=== PATIENT | female | born 1995 | race Caucasian/White ===

== ENCOUNTER 2025-03-28 12:54 | Outpatient (REF) | payer OTHER, SELFPAY ==
[2025-03-28 18:27] LABS: MANUAL DIFF FLAG NO
[2025-03-28 18:41] LABS: Hematocrit 43.6 % (37.0-47.0); Hemoglobin 15.1 g/dl (12.0-16.0); Imm Gran Abs Auto 0.01 X10*3/uL (0.00-0.03); Imm Gran Pct Auto 0.1 % (0.0-0.4); Lymphocytes Absolute Auto 2.3 X10*3/uL (1.2-4.9); Mean Corpuscular HGB Conc 34.6 g/dl (31.0-35.0); Mean Corpuscular Hemoglobin 31.3 pg (27.0-33.0); Mean Corpuscular Volume 90.5 fL (80.0-98.0); NRBC Abs Auto 0.000 X10*3/uL (0.0-0.012); NRBC Pct Auto 0.0 /100WBC (0.0-0.2); Platelet Count 275 X10*3/uL (160-400); Red Blood Count 4.82 X10*6/uL (4.20-5.50); White Blood Count 7.2 X10*3/uL (4.8-10.8)
[2025-03-28 18:51] LABS: Alanine Aminotransferase 19 U/L (0-31); Albumin Level 4.9 g/dL (3.5-5.0); Alkaline Phosphatase 51 U/L (39-117); Anion Gap 11 (12-20); Aspartate Amino Transferase 27 U/L (5-31); Blood Urea Nitrogen 10 mg/dL (9-16); Calcium 10.0 mg/dL (8.4-10.2); Carbon Dioxide 25 mmol/L (22-29); Chloride 106 mmol/L (96-108); Cholesterol 181 mg/dL (<200); Estimated Glomerular Filt Rate > 60; HDL Cholesterol 50 mg/dL (>40); Magnesium 2.2 mg/dL (1.6-2.6); Potassium 4.4 mmol/L (3.3-5.1); Sodium 138 mmol/L (135-145); Total Protein 7.5 g/dL (6.5-8.0); Triglycerides 63 mg/dL (<150)
[2025-03-28 19:04] LABS: Appearance Urine Clear; Glucose Urine UA Negative (Negative); PH 6.0 (5.0-9.0); Specific Gravity - Urine 1.025 (1.005-1.025); UMIC TRIGGER UACC YES
[2025-03-28 19:17] LABS: Folate 10.9 ng/mL (> or = 4.0); Vitamin B12 260 pg/mL (200-900)
[2025-03-29 04:00] LABS: Syphilis Screen Nonreactive (Nonreactive)
[2025-03-29 04:08] LABS: HBS Num1 1.53 mIU/mL (0-7.99); HBsAGNum1 0.52 S/CO (0.00-0.99); HIV Num 1 0.05 S/CO (0.00-0.99); Hepatitis B Surface Antigen Negative (Negative); ~HepC Num1 0.07 S/CO (0.00-0.79); ~Hepatitis B Surface Antibody NONREACTIVE (Nonreactive); ~Hepatitis C Antibody Nonreactive (Nonreactive)
[2025-03-29 13:28] LABS: CT PCR Urine Error (Not Detect.); NG PCR Urine Error (Not Detect.)
[2025-04-02 11:19] LABS: Chlamydia Trachomatis IgA <1:16 titer (<1:16)
[2025-04-03 15:33] LABS: VITAMIN D (1,25 OH) D3 45 pg/mL; Vit D (1,25-Dihydroxy) Total 45 pg/mL (18-72); Vitamin D (1,25 OH) D2 <8 pg/mL
== END 2025-03-28 12:55 | disposition home or self-care (01) ==
LOC: HO.HKASLDS 12:54
PROVIDERS: PCP Student in an Organized Health Care Education/Training Program; Visit Provider Student in an Organized Health Care Education/Training Program
DX: M51.369 Other intervertebral disc degeneration, lumbar region without mention of lumbar back pain or lower extremity pain (principal); M54.50 Low back pain, unspecified; M54.32 Sciatica, left side; M25.552 Pain in left hip; G89.29 Other chronic pain; J45.909 Unspecified asthma, uncomplicated; Z20.2 Contact with and (suspected) exposure to infections with a predominantly sexual mode of transmission; Z11.4 Encounter for screening for human immunodeficiency virus [HIV]
CPT/HCPCS: 80053; 80061; 81001; 81003; 82607; 82652; 82746; 83036; 83735; 84443; 85025; 86631; 86632; 86706; 86780; 86803; 87340; 87389; 87491; 87591; 99202

== ENCOUNTER 2025-03-28 12:54 | Outpatient (AMB) | payer OTHER, SELFPAY ==
--- OUTSIDE RECORDS SUMMARY | 2022-08-02 12:32 | XMS_ITS | Encounter Summary ---
Author Organization [facility] Address [address] [place] [address] Phone Care Team Providers Care Customs Collector Name Role Phone Herminia Gallego NP Primary Care Provider [phone] Encounter Details Date Type Department Care Team (Late st Contact Info) Description 08/02/2022 11:32 AM EST Hospital Encounter [facility] [address] [place] [address] Jonna Epstein FNP 12 [place] [address] [email or web address] Social History Tobacco Use Types Packs/Day [...] 12:23 PM EDT Catherine Keith RN * [place] Suicide Severity Rating Scale (Screener/Recent Self-Report) Question [...] No displaced fracture or dislocation. Jonna Epstein WOOD FENCE ERECTOR IMG XR LOWER EXTREMITY Joan l Result documented in this encounter Visit Diagnoses Not on filedocumented in this encounter Additional Health Concerns Infection Onset Date Last Indicated Resolved Time CoV-Risk 07/01/2024 07/01/2024 07/12/2024 1:23 AM EST documented as of this encounter Care Teams Customs Collector Relationship Specialty Start Date End Date Herminia Gallego NP [address] [place] [address] PCP - General Family Medicine 01/17/21 documented as of this encounter Additional Source Comments The information contained in this document represents components of the legal health record. It is not the complete legal health record.[facility]
--- OUTSIDE RECORDS SUMMARY | 2022-08-02 12:40 | XMS_ITS | Encounter Summary ---
Author Organization [facility] Address [address] [place] [address] Phone Care Team Providers Care Business Risk Consultant Name Role Phone Herminia Gallego NP Primary Care Provider [phone] Encounter Details Date Type Department Care Team (Late st Contact Info) Description 08/02/2022 11:40 AM EST Hospital Encounter [facility] [address] [place] [address] Jonna Epstein FNP [address] [place] [address] [email or web address] Social History Tobacco Use Types Packs/Day [...] 12:23 PM EDT Catherine Keith RN * [place] Suicide Severity Rating Scale (Screener/Recent Self-Report) Question [...] No displaced fracture or dislocation. Jonna Epstein PUBLICITY AGENT IMG XR LOWER EXTREMITY Joan l Result documented in this encounter Visit Diagnoses Not on filedocumented in this encounter Additional Health Concerns Infection Onset Date Last Indicated Resolved Time CoV-Risk 07/01/2024 07/01/2024 07/12/2024 1:23 AM EST documented as of this encounter Care Teams Business Risk Consultant Relationship Specialty Start Date End Date Herminia Gallego NP [address] [place] [address] PCP - General Family Medicine 01/17/21 documented as of this encounter Additional Source Comments The information contained in this document represents components of the legal health record. It is not the complete legal health record.[facility]
--- OUTSIDE RECORDS SUMMARY | 2024-07-01 18:05 | XMS_ITS | Encounter Summary ---
Author Organization [facility] Address [address] [place] [address] Phone Care Team Providers Care Fire Alarm Inspector Name Role Phone Herminia Gallego NP Primary Care Provider [phone] Encounter Details Date Type Department Care Team (Late st Contact Info) Description 07/01/2024 5:05 PM EST Hospital Encounter [facility] [address] [place] [address] Jonna Epstein FNP [address] [place] [address] [email or web address] Social History Tobacco Use Types Packs/Day [...] 12:23 PM EDT Catherine Keith RN * [place] Suicide Severity Rating Scale (Screener/Recent Self-Report) Question [...] clinician's provided indication for this examination in [facility]:Cough; chest heaviness sob COMPARISON: XR CHEST PA AND LATERAL 2 VIEWS FINDINGS: Devices/Tubes/Lines: None. Lungs: Normal. The lungs are clear. No focal consolidation or pulmonaryedema. Pleura: Normal. No pleural effusion or pneumothorax. Heart/Mediastinum: Normal heart and mediastinum. Bones/Soft Tissues: Normal. No significant skeletal abnormality. IMPRESSION: Normal chest. Jonna Epstein HISTORICAL RECORDS ADMINISTRATOR IMG XR CHEST Final Resul t documented in this encounter Visit Diagnoses Not on filedocumented in this encounter Additional Health Concerns Infection Onset Date Last Indicated Resolved Time CoV-Risk 07/01/2024 07/01/2024 07/12/2024 1:23 AM EST documented as of this encounter Care Teams Fire Alarm Inspector Relationship Specialty Start Date End Date Herminia Gallego NP [address] [place] [address] PCP - General Family Medicine 01/17/21 documented as of this encounter Additional Source Comments The information contained in this document represents components of the legal health record. It is not the complete legal health record.[facility]
--- NOTE | 2025-03-28 13:00 | A.OFFPC_ITS ---
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 Asthma, mild intermittent: - The patient has a history of mild inte rmittent asthma managed with albuterol and budesonide, with no exacerbations in the past year and rare inhaler use. L4-L5 disc bulge: - The patient has an L4-L5 disc bulge id entified via CT scan during an ED visit for lower back pain. 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 Left hip pain: - The patient reports chronic left hip p ain, which is part of her ongoing musculoskeletal issues. 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 Review of Systems - Respiratory: Denies recent asthma exac erbations, reports rare inhaler use. - Musculoskeletal: Reports chronic lower back pain, left hip pain, and sciatica. 10-point ROS reviewed and negative excep t as noted in HPI Past Medical History - Asthma, mild intermittent - L4-L5 disc bulge - Chronic sciatica - Left hip pain - Chronic lower back pain Health Maintenance Physical Exam General: Well-appearing, in no acute distress. Vital signs: Within normal limits. HEENT: Normocephalic, atraumatic. PERRLA, EOMI. Conjunctiva clear, sclera anicteric. Oropharynx clear, mucous membranes moist. TMs intact bilaterally. Neck: Supple, no lymphadenopathy, no thyromegaly, no JVD or carotid bruits. Cardiovascular: RRR, normal S1/S2, no murmurs, rubs, or gallops. Peripheral pulses 2+ and symmetric. No edema. Respiratory: Lungs clear to auscultation bilaterally, no wheezes, rales, or rhonchi. Normal effort. Abdomen: Soft, non-tender, non-distended. Normoactive bowel sounds. No hepatosplenomegaly, no masses. MSK: Full range of motion, no joint swelling or deformity. Normal gait. Reports chronic lower back pain, left hip pain, and chronic sciatica down the left side. L4-L5 disc bulge noted on previous CT scan. Positive straight leg test Skin: Warm, dry, intact. No rashes, lesions, or pallor. Neuro: Alert and oriented x3. Cranial nerves II-XII intact. Strength 5/5 throughout. Sensation intact. Reflexes 2+ symmetric. Normal coordination and gait. Psych: Appropriate mood and affect. Normal judgment and insight. Plan 1. Asthma, Mild Intermittent - Continue current asthma management wit h albuterol and butanoside as needed. 2. L4-L5 Disc Bulge - Order MRI of the lumbar spine to asses s the extent of the disc bulge. - Consider referral to orthopedic or haydee rosurgery based on MRI results. 3. Chronic Sciatica - Recommend continuation of stretching e xercises and use of heating pads. - Prescribe ibuprofen 800 mg for pain ma nagement. 4. Left Hip Pain - Manage with stretching exercises and i buprofen as needed. 5. Chronic Lower Back Pain - Continue with current home exercise re gimen and use of heating pads. - Prescribe ibuprofen 800 mg for pain re lief. - MRI of the lumbar spine to further cecile luate the condition. Discussion Notes I discussed with the patient the management of her asthma, emphasizing the importance of using her inhaler as needed. We reviewed her chronic lower back pain and associated symptoms, and I recommended an MRI to further evaluate her lumbar spine condition. We also discussed the potential need for referral to orthopedic or neurosurgery based on the MRI results. The patient declined physical therapy, stating she is familiar with the necessary exercises. I prescribed ibuprofen 800 mg for pain management and advised her to continue with her stretching exercises and use of heating pads. Patient was informed and verbally consented to the use of an ambient scribe for clinic note documentation during this visit. Patient Instructions - Use albuterol inhaler as needed for as thma symptoms. - Continue stretching exercises and use heating pads for back and hip pain. - Take ibuprofen 800 mg as prescribed fo r pain relief. - Schedule an MRI of the lumbar spine. - Follow up with results for potential r eferral to orthopedic or neurosurgery. Total time spent caring for the patient today was 30 minutes. This includes time spent before the visit reviewing the chart, time spent documenting, and time spent reviewing medication performing a medically necessary evaluation, counseling on diagnoses, care coordination, ordering appropriate tests, ordering appropriate medications, [facility] Medical History (Updated 03/28/25 @ 14:03 by Joan Mathews) L4-L5 disc bulge Left hip pain Sciatica, left side Lumbar pain Chronic lower back pain Family History (System 03/28/25 @ 14:03 by Joan Mathews) Father No problems noted. Mother No problems noted. Social History (System 03/28/25 @ 14:03 by Joan Mathews) Housing: House Alcohol intake: current Alcohol intake frequency: holidays/special occasions only Patient Tobacco Use Status: Never used Tobacco service: No Current occupational status: unemployed Cognitive needs: No Hearing needs: No Vision needs: Yes (rx glasses) Questionnaire PHQ-9 Over the last 2 weeks, how often have you been bothered by any of the following problems? 1. Little interest or pleasure in doing things: several days 2. Feeling down, depressed, or hopeless: several days 3. Trouble falling or staying asleep, or sleeping too much: several days 4. Feeling tired or having little energy: not at all 5. Poor appetite or overeating: not at all 6. Feeling bad about yourself - or that you are a failure or have let yourself or your family down: not at all 7. Trouble concentrating on things, such as reading the newspaper or watching television: not at all 8. Moving or speaking so slowly that other people could have noticed. Or the opposite - being so fidgety or restless that you have been moving around a lot more than usual: not at all 9. Thoughts that you would be better off or of hurting yourself in some way: not at all Total score: 3 Source: Developed by Drs. Ar Bhardwaj, Yamilet Sewell, Georgi Hernández and colleagues, with an educational james from [employer]. Thrive Questionnaire Date Thrive assessed: 03/21/25 I am a: Patient What is your living situation today?: I have a steady place to live Within the past 12 months, did the food you bought not last and you didn't have the money to get more?: Never true Within the past 12 months, did you worry whether your food would run out before you got money to buy more?: Never true Do you have trouble paying for medicines?: No Do you have trouble getting transportation to medical appointments?: No Do you have trouble paying your heating and electricity bill?: No Do you have trouble taking care of your child, family member or friend?: No Do you have trouble with day-to-day activities such as bathing, preparing meals, shopping, managing finances, etc.?: No Are you currently unemployed and looking for a job?: No Are you interested in more education?: No Please select the resources that you would like help with: None Currently or been in a relationship where the following occur: No concerns reported THRIVE Score: 0 AUDIT C Alcohol Use Questionnaire (AUDIT-C) 1. How often do you have a drink containing alcohol?: Monthly or less 2. How many drinks containing alcohol do you have on a typical day when you are drinking?: 1 or 2 3. How often do you have six or more drinks on one occasion?: Never Total Score: 1 SOL-7 AMB Questionnaire SOL-7 Date SOL - 7 assessed: 03/28/25 Feeling nervous, anxious, or on edge: 1 = Several days Not being able to stop or control worryin = Several days Worrying too much about different things: 1 = Several days Trouble relaxin = Nearly every day Being so restless that it is hard to sit still: 1 = Several days Becoming easily annoyed or irritable: 0 = Not at all Feeling afraid as if something awful might happen: 1 = Several days Total SOL-7 score (0-4 normal; 5-9 mild; 10-14 moderate; 15-21 severe): 8 Source: Developed by Yamilet HillW. Donato, Georgi Hernández and colleagues, with an educational james from [employer]. Physical exam (Primary Care) Vital Signs: Last Vital Signs Temp 98.1 F 03/28/25 13:10 Pulse 73 03/28/25 13:10 Resp 16 03/28/25 13:10 BP 103/72 03/28/25 13:10 Pulse Ox 96 03/28/25 13:10 Oxygen Delivery Method Room Air 03/28/25 13:10 BMI result Body Mass Index 22.4 Tobacco/Smoking Status: Tobacco use Status Tobacco use date assessed 03/28/25 03/28/25 13:02 Patient Tobacco Use Status Never used Tobacco 03/28/25 13:10 PHQ-9: PHQ-9 Score PHQ-9: Total score 3 03/28/25 13:27 Thrive Assessment: Date of Thrive Assessment Date Thrive assessed 03/21/25 03/28/25 13:02 Currently or been in a relationship where the following occur: No concerns reported Coding Level of Care Code New Pt Level 4 (38946) Diagnoses Chronic lower back pain M54.50; G89.29 Sciatica, left side M54.32 Left hip pain M25.552 Lumbar pain M54.50 Asthma J45.909 Assessment & Plan Assessment & Plan (1) Chronic lower back pain: Code(s): M54.50 - Low back pain, unspecified; G89.29 - Other chronic pain Category: Medical (2) Sciatica, left side: Code(s): M54.32 - Sciatica, left side Category: Medical (3) Left hip pain: Code(s): M25.552 - Pain in left hip Category: Medical (4) Lumbar pain: Code(s): M54.50 - Low back pain, unspecified Category: Medical (5) Asthma: Code(s): J45.909 - Unspecified asthma, uncomplicated Plan Orders: Orders Hemoglobin A1c 03/28/25 Z13.9 - Encounter for screening, unspecified Hepatitis B Surface Antigen 03/28/25 Z13.9 - Encounter for screening, unspecified HIV Ab/Ag 03/28/25 Z13.9 - Encounter for screening, unspecified Lipid Panel 03/28/25 Z13.9 - Encounter for screening, unspecified Vitamin B12 and Folate 03/28/25 Z13.9 - Encounter for screening, unspecified Vitamin D 1,25 dihydroxy 03/28/25 Z13. - Encounter for screening, unspecified Syphilis Screen 03/28/25 Z13. - Encounter for screening, unspecified CT NG by PCR Urine 03/28/25 Z13. - Encounter for screening, unspecified MR lumbar spine wo/w con 03/28/25 G89.29 - Other chronic pain, M25.552 - Pain in left hip, M51.369 - Other intervertebral disc degeneration, lumbar region without mention of lumbar back pain or lower extremity pain, M54.32 - Sciatica, left side, M54.50 - Low back pain, unspecified Complete Blood Count Auto Diff 03/28/25 Z13. - Encounter for screening, unspecified Comprehensive Met. Panel 03/28/25 Z13. - Encounter for screening, unspecified Hepatitis B Surface Antibody 03/28/25 Z13. - Encounter for screening, unspecified Hepatitis C Antibody 03/28/25 Z13. - Encounter for screening, unspecified Magnesium 03/28/25 Z13. - Encounter for screening, unspecified UA CC w/rflx Micro + Cult 03/28/25 Z13. - Encounter for screening, unspecified Chlamydia Species Ab Panel 03/28/25 Z13. - Encounter for screening, unspecified TSH reflex Free T4 03/28/25 Z13. - Encounter for screening, unspecified Medications: New ibuprofen 800 mg PO Q8H 30 tabs 0RF M51.369 - Other intervertebral disc degeneration, lumbar region without mention of lumbar back pain or lower extremity pain
[2025-03-28 13:10] VITALS: BP 103/72; PULSE 73; RESP 16; TEMP 36.7; O2SAT 96; BMI 22.4
--- OUTSIDE RECORDS SUMMARY | 2025-03-28 13:20 | XMS_ITS | Encounter Summary ---
Author Organization [facility] Address [address] [place] [id number] Phone Care Team Providers Care Supervisor Component Assembler Name Role Phone Herminia Gallego NP Primary Care Provider [phone] Encounter Details Date Type Department Care Team (Late st Contact Info) Description 11/25/2022 Procedure Pass [place] Admitting Dept - Virtual Department [address] [place] [address] Social History Tobacco Use Types Packs/Day Years [...] with a working camera? Not on file Comments Unknown Sex and Gender Information Value Date Recorded Sex Assigned at Female 01/17/2021 5:54 PM EDT Legal Sex Female 7:31 PM EST Gender Identity Female 01/17/2021 5:54 PM EDT Sexual Orientation Not on file documented as of this encounter Plan of Treatment Not on file documented as of this encounter Visit Diagnoses Not on filedocumented in this encounter Additional Health Concerns Infection Onset Date Last Indicated Resolved Time CoV-Risk 07/01/2024 07/01/2024 07/12/2024 1:23 AM EST documented as of this encounter Care Teams Supervisor Component Assembler Relationship Specialty Start Date End Date Herminia Gallego NP [address] [place] [address] PCP - General Family Medicine 01/17/21 documented as of this encounter Additional Source Comments The information contained in this document represents components of the legal health record. It is not the complete legal health record.[facility]
--- OUTSIDE RECORDS SUMMARY | 2025-03-28 13:20 | XMS_ITS | Encounter Summary ---
Author Organization [facility] Address [address] [place] [address] Phone Care Team Providers Care Skidder Driver Name Role Phone JuliánHerminia NP Primary Care Provider [phone] Encounter Details Date Type Department Care Team (Late st Contact Info) Description 03/03/2021 Procedure Pass [facility], Ct Scan - [address] [address] Social History Tobacco Use Types Packs/Day Years Used Date Smoking Tobacco: Never Smokeless Tobacco: Never Alcohol Use Standard Drinks/Week Comments Never 0 (1 standard drink = 0.6 oz pur e alcohol) Comments Unknown Sex and Gender Information Value Date Recorded Sex Assigned at Female 01/17/2021 5:54 PM EDT Legal Sex Female 7:31 PM EST Gender Identity Female 01/17/2021 5:54 PM EDT Sexual Orientation Not on file documented as of this encounter Functional Status * Calculated C-SSRS Risk Score (Lifetime/Recent) Answer Date of Assessment Author No Risk Indicated 03/03/2021 5:08 PM EDT Gilda Ram RN * [place] Suicide Severity Rating Scale (Screener/Recent Self-Report) Question Answer Date of Assessment Author 1. Wish to be (Past 1 Month) No 03/03/2021 5:08 PM EDT Gilda Segovia RN 2. Non-Specific Active Suici enio Thoughts (Past 1 Month) No 03/03/2021 5:08 PM EDT Lester Segovia RN 6. Suicidal Behavior (Lifetime) No 09/08/202 1 5:08 PM EDT Gilda Segovia RN documented as of this encounter Plan of Treatment Not on file documented as of this encounter Visit Diagnoses Not on filedocumented in this encounter Additional Health Concerns Infection Onset Date Last Indicated Resolved Time CoV-Risk 07/01/2024 07/01/2024 07/12/2024 1:23 AM EST documented as of this encounter Care Teams Skidder Driver Relationship Specialty Start Date End Date Herminia Gallego NP [address] [place] [address] PCP - General Family Medicine 01/17/21 documented as of this encounter Additional Source Comments The information contained in this document represents components of the legal health record. It is not the complete legal health record.[facility]
--- OUTSIDE RECORDS SUMMARY | 2025-03-28 13:20 | XMS_ITS | Clinical Summary ---
Author Organization [facility] Address [address] [place] [id number] Phone Care Team Providers Care Case Assembler Name Role Phone Herminia Gallego NP Primary Care Provider [phone] Allergies Active Allergy Reactions Criticality Noted Date Comments Buspirone Rash Low 06/07/2024 Bupropion Hcl Rash Low 03/03/2021 Medications albuterol 90 mcg/actuation inhaler Inhale 2 puffs into the lungs every 6 (six) hours as needed for wheezing. Active cyclobenzaprine (FLEXERIL) 5 MG tablet Take 1 tablet (5 mg total) by mouth 3 (three) times a day as needed (muscle spasm). 15 tablet 3 Active Additional Information Patient not taking.Reported on 06/07/2024 naproxen (NAPROSYN) 500 MG tablet Take 1 tablet (500 mg total) by mouth 2 (two) times a day as needed (moderate pain). Take with food. 14 tablet 3 Active Active Problems No known active problems Immunizations Immunization Administration Dates Next Due DTP 09/02/1996, 6,1995,05/04 Dtap, 5 Pertussis Antigens 03/02/2000 [id number] FORMULATION 04/22/2009 HPV,quadrivalent 03/27/2008,11/20/2007, 8 Hepatitis A, Adult 11/05/2014 Hepatitis A, ped/adol, 2 dose 10/01/2013 Hepatitis B 1995,1995,1995 Hib,PRP-T 03/10/2011, 7,1995,07/04,1995 INFLUENZA, SPLIT VIRUS, TRIV ALENT W/ PRESERVATIVE IM 03/27/2009,07/22/2008,04/05/2006,04/27,04/21/2004,05/14/2002,05/09/2001 ,04/18/2000 IPV 03/02/2000 Influenza Quadrivalent Prese rvative Free IM 06/06/2013 Influenza Quadrivalent w/ Pr eservative IM 09/01/2015 Influenza Split (Incl. Purif ied Surface Antigen) 02/29/2012,03/10/2011,05/13/2010 MMR 02/16/1999,03/14/1996 Meningococcal MCV4P 10/01/2013,07/26/2007 Pneumococcal polysaccharide PPSV23 03/10/2011 Polio - OPV 1995,1995,1995 Tdap 01/27/2015,04/05/2006 Varicella 07/26/2007,03/14/1996 Social History Tobacco Use Types Packs/Day Years Used Date Smoking Tobacco: Never Smokeless Tobacco: Never Tobacco Cessation:Counseling Given: Not Answered Alcohol Use Standard Drinks/Week Comments Never 0 [...] PM EDT Sexual Orientation Not on file Last Filed Vital Signs Vital Sign Reading Time Taken Comments Blood Pressure 117/74 09/19/2024 2:17 PM EDT Pulse 94 09/19/2024 2:17 PM EDT Temperature 37.3 C (99.2 F) 09/19/2024 2:17 PM EDT Respiratory Rate 18 09/19/2024 2:17 PM EDT Oxygen Saturation 98% 09/19/2024 2: 17 PM EDT Inhaled Oxygen Concentration - - Weight 57.1 kg (125 lb 14.4 oz) 025 12:24 PM EDT Height 154.9 cm (5' 1 ) 09/19/2024 12:2 4 PM EDT Body Mass Index 23.79 09/19/2024 12:24 PM EDT Plan of Treatment Health Maintenance Due Date Last Done Comments DEPRESSION SCREENING 2007 HEPATITIS C SCREENING 2013 HIV ONE-TIME SCREENING (18-65 YEARS) 2013 PAP SMEAR 2016 INFLUENZA VACCINE (#1) 2025 6, 06/06/2013, 02/29/2012, Additional history exists Adult Td,Tdap Booster 01/27/2025 01/27/2015, 006 COVID-19 VACCINE ( season) 2025 12/11/2020, 11/13/2020 HIB VACCINES Completed 03/10/2011, 11/1996, 1995, Additional history exists PNEUMOCOCCAL VACCINES (0-49 years) Aged Out 03/10/2011 No longer eligible based on patient's age to complete this topic MENINGOCOCCAL VACCINES (ACWY) Completed 10/01/2013, 10/01/2013, 07/26/2007, Additional history exists HEPATITIS A VACCINES Completed 11/05/2014, 10/01/2013, 10/01/2013 SMOKING STATUS SCREENING (Once After 26 Yrs) Completed 09/19/2024 MENINGOCOCCAL VACCINES (B) Aged Out N o longer eligible based on patient's age to complete this topic Medical Devices Not on file Care Teams Case Assembler Relationship Specialty Start Date End Date Herminia Gallego NP [address] [place] [address] PCP - General Family Medicine 01/17/21 Additional Source Comments The information contained in this document represents components of the legal health record. It is not the complete legal health record.[facility]
== END 2025-03-28 13:41 | disposition home or self-care (01) ==
LOC: HO.HMCFMS 12:55
PROVIDERS: PCP Student in an Organized Health Care Education/Training Program; Visit Provider Student in an Organized Health Care Education/Training Program
DX: M54.50 Low back pain, unspecified (principal); G89.29 Other chronic pain; M54.32 Sciatica, left side; M25.552 Pain in left hip; J45.909 Unspecified asthma, uncomplicated

== ENCOUNTER 2025-04-11 08:33 | Outpatient (AMB) | payer OTHER, SELFPAY ==
--- OUTSIDE RECORDS SUMMARY | 2022-08-02 12:32 | XMS_ITS | Encounter Summary ---
Author Organization [facility] Address [address] [place] [address] Phone Care Team Providers Care Heel Stiffener Name Role Phone Herminia Gallego NP Primary Care Provider Encounter Details Date Type Department Care Team (Late st Contact Info) Description 08/02/2022 11:32 AM EST Hospital Encounter [facility] [address] [place] [address] Jonna Epstein FNP 12 [place] [address] [email or web address] Social History Tobacco Use Types Packs/Day [...] 12:23 PM EDT Catherine Keith RN * [place] Suicide Severity Rating Scale (Screener/Recent Self-Report) Question [...] No displaced fracture or dislocation. Jonna Epstein BRUSH HOLDER ASSEMBLER IMG XR LOWER EXTREMITY Joan l Result documented in this encounter Visit Diagnoses Not on filedocumented in this encounter Additional Health Concerns Infection Onset Date Last Indicated Resolved Time CoV-Risk 07/01/2024 07/01/2024 07/12/2024 1:23 AM EST documented as of this encounter Care Teams Heel Stiffener Relationship Specialty Start Date End Date Herminia Gallego NP [address] [place] [address] PCP - General Family Medicine 01/17/21 documented as of this encounter Additional Source Comments The information contained in this document represents components of the legal health record. It is not the complete legal health record.[facility]
--- OUTSIDE RECORDS SUMMARY | 2022-08-02 12:40 | XMS_ITS | Encounter Summary ---
Author Organization [facility] Address [address] [place] [address] Phone Care Team Providers Care Paint Factory Worker Name Role Phone Herminia Gallego NP Primary Care Provider Encounter Details Date Type Department Care Team (Late st Contact Info) Description 08/02/2022 11:40 AM EST Hospital Encounter [facility] [address] [place] [address] Jonna Epstein FNP 12 [place] [address] [email or web address] Social History Tobacco Use Types Packs/Day [...] 12:23 PM EDT Catherine Keith RN * [place] Suicide Severity Rating Scale (Screener/Recent Self-Report) Question [...] No displaced fracture or dislocation. Jonna Epstein WRAPPER LAYER IMG XR LOWER EXTREMITY Joan l Result documented in this encounter Visit Diagnoses Not on filedocumented in this encounter Additional Health Concerns Infection Onset Date Last Indicated Resolved Time CoV-Risk 07/01/2024 07/01/2024 07/12/2024 1:23 AM EST documented as of this encounter Care Teams Paint Factory Worker Relationship Specialty Start Date End Date Herminia Gallego NP [address] [place] [address] PCP - General Family Medicine 01/17/21 documented as of this encounter Additional Source Comments The information contained in this document represents components of the legal health record. It is not the complete legal health record.[facility]
--- OUTSIDE RECORDS SUMMARY | 2024-07-01 18:05 | XMS_ITS | Encounter Summary ---
Author Organization [facility] Address [address] [place] [address] Phone Care Team Providers Care Director Of Education And Training Name Role Phone Herminia Gallego NP Primary Care Provider [phone] Encounter Details Date Type Department Care Team (Late st Contact Info) Description 07/01/2024 5:05 PM EST Hospital Encounter [facility] [address] [place] [address] Jonna Epstein FNP [address] [place] [address] [email or web address] Social History Tobacco Use Types Packs/Day Years [...] 12:23 PM EDT Catherine Keith RN * [place] Suicide Severity Rating Scale (Screener/Recent Self-Report) Question Answer Date of Assessment Author 1. Wish to be (Past 1 Month) No 025 12:23 PM EDT Catherine aBrahona RN 2. Non-Specific Active Suici enio Thoughts [...] clinician's provided indication for this examination in [facility]:Cough; chest heaviness sob COMPARISON: XR CHEST PA AND LATERAL 2 VIEWS FINDINGS: Devices/Tubes/Lines: None. Lungs: Normal. The lungs are clear. No focal consolidation or pulmonaryedema. Pleura: Normal. No pleural effusion or pneumothorax. Heart/Mediastinum: Normal heart and mediastinum. Bones/Soft Tissues: Normal. No significant skeletal abnormality. IMPRESSION: Normal chest. Jonna Epstein RUSSIAN LANGUAGE PROFESSOR IMG XR CHEST Final Resul t documented in this encounter Visit Diagnoses Not on filedocumented in this encounter Additional Health Concerns Infection Onset Date Last Indicated Resolved Time CoV-Risk 07/01/2024 07/01/2024 07/12/2024 1:23 AM EST documented as of this encounter Care Teams Director Of Education And Training Relationship Specialty Start Date End Date Herminia Gallego NP [address] [place] [address] PCP - General Family Medicine 01/17/21 documented as of this encounter Additional Source Comments The information contained in this document represents components of the legal health record. It is not the complete legal health record.[facility]
--- NOTE | 2025-04-11 08:51 | MHC.PC.OV ---
Vital Signs 04/11/25 08:55 Height 5 ft 2.2 in Weight 130 lb 6 oz BMI 23.7 BP 99/55 L Blood Pressure Location Lt brachial Position Sitting Respiration 16 Pulse 67 Pulse Source Pulse Oximeter Temp 97.9 F Temp Source Oral Pulse Oximetry (%) 97 Oxygen Delivery Method Room Air Intake Visit Reasons: 2 wk f/u Mental Hygiene Consultant Required: No Accompanied by: Self / Same As Patient Allergies buspirone Allergy (Mild, Verified 04/11/25 08:55) Hives Tobacco use date assessed: 04/11/25 Dental Screening Dental Screen Date: 03/28/25 Did you have a dental visit in the last 12 months?: No Did you have a dental problem in the last 6 months where you did not have access to dental care?: No Was dental information given to patient?: Patient has dentist HPI HPI Comments History of Present Illness Details Consent Patient was informed and verbally consented to the use of an ambient scribe for clinic note documentation during this visit. History of Present Illness The patient is a 30-year-old female presenting for a follow-up on lab results and evaluation of chronic sciatica. Chronic Sciatica: The patient has experienced chronic sciatica with pain radiating down her left side, significantly impacting her quality of life. This condition was identified as an L4-L5 disc bulge via CT scan during an emergency department visit. 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 She was advised to get an MRI for a more detailed evaluation of her lumbar spine condition. Hyperlipidemia: There is a recent finding of elevated LDL levels at 119 mg/dL, noted during laboratory evaluation. Menorrhagia: The patient reports having heavy menstrual cycles characterized by heavy bleeding, fevers, nausea, and a physically distended abdomen. She denies any significant dietary causes, as her iron levels are normal, and is concerned about the recurring symptoms. Surgical History: - No surgical procedures to date. 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 Family History: - No family medical history discussed. Diagnostic Results: - Labs: - CBC: Normal - LDL: Elevated at 119 mg/dL - Vitamin B12: Low normal at 260 pg/mL - Proteinuria: 1+ - Tests and diagnostics: - CT scan indicated L4-L5 disc bulge Review of Systems - Musculoskeletal: Reports chronic lower back pain radiating to the left side. - Respiratory: Denies current asthma symptoms. - Genitourinary: Reports menorrhagia characterized by heavy menstrual bleeding, fevers, nausea, and abdominal distension. 10-point ROS reviewed and negative except as noted in HPI Past Medical History - Chronic Sciatica - L4-L5 Disc Bulge - Mild Intermittent Asthma - Hyperlipidemia Health Maintenance - Vitamin B12 supplementation advised due to low normal levels. - Recommended dietary changes to address elevated LDL levels. Physical Exam General: Well-appearing, in no acute distress. Vital signs: Within normal limits. HEENT: Normocephalic, atraumatic. PERRLA, EOMI. Conjunctiva clear, sclera anicteric. Oropharynx clear, mucous membranes moist. TMs intact bilaterally. Neck: Supple, no lymphadenopathy, no thyromegaly, no JVD or carotid bruits. Cardiovascular: RRR, normal S1/S2, no murmurs, rubs, or gallops. Peripheral pulses 2+ and symmetric. No edema. Respiratory: Lungs clear to auscultation bilaterally, no wheezes, rales, or rhonchi. Normal effort. Abdomen: Soft, non-tender, distended. Normoactive bowel sounds. No hepatosplenomegaly, no masses. MSK: Full range of motion, no joint swelling or deformity. Normal gait. Skin: Warm, dry, intact. No rashes, lesions, or pallor. Neuro: Alert and oriented x3. Cranial nerves II-XII intact. Strength 5/5 throughout. Sensation intact. Reflexes 2+ symmetric. Normal coordination and gait. Psych: Appropriate mood and affect. Normal judgment and insight. Plan 1. Chronic Sciatica - Plan to obtain MRI to further evaluate lumbar spine condition. - Consider referral to orthopedic or neurosurgery based on MRI results. 2. Mild Intermittent Asthma - Continue management with albuterol and budesonide. 3. Hyperlipidemia - Advise dietary modification to reduce LDL. - Suggest follow-up lipid panel in 6 months. 4. Menorrhagia - Plan for an ultrasound to evaluate for fibroids or other anatomical concerns. - Consider consult with a director of vendor management for potential nutritional interventions. Discussion Notes I discussed the recommendation for an MRI to evaluate the patient?s chronic sciatica further and mentioned the potential for referral to orthopedics or neurosurgery based on the results. We reviewed her lab results, noting her elevated LDL and low normal Vitamin B12, and discussed vitamin supplementation and dietary changes to address these concerns. I advised her on obtaining a pelvic and transvaginal ultrasound to explore the cause of her menorrhagia, explaining the potential presence of fibroids. We discussed follow-up plans, and I proposed a consult with a armor senior sergeant for nutritional guidance regarding her hyperlipidemia. Patient Instructions - Call to schedule your MRI and ultrasound appointments as soon as possible. - Continue using your current asthma medications as prescribed. - Begin Vitamin B12 supplementation as discussed. - Adjust your diet by reducing cheese and egg intake to help lower LDL. - Follow up in 6 months for repeat tests to reassess LDL and urine protein levels. - Seek a armor senior sergeant's guidance if desired. - Notify me of any concerns or changes in symptoms. Medical Decision Making In assessing the patient?s chronic sciatica, an MRI is essential to evaluate the extent of the L4-L5 disc bulge further and guide potential referrals to orthopedics or neurosurgery. The patient?s asthma is well-controlled with current medication, requiring no adjustment at this time. Her hyperlipidemia is addressed through dietary modifications, considering the patient?s age and overall cardiovascular risk which is relatively low. Regarding her menorrhagia, a pelvic and transvaginal ultrasound will aid in identifying possible underlying anatomical causes such as fibroids. Ongoing monitoring of her Vitamin B12 status is necessary due to current low normal levels, thus supplementation is recommended to prevent potential symptoms. Total time spent caring for the patient today was 30 minutes. This includes time spent before the visit reviewing the chart, time spent documenting, and time spent reviewing laboratory results, diagnostic imaging, medications, performing a medically necessary evaluation, counseling on diagnoses, care coordination. [facility] Medical History (Updated 04/11/25 @ 09:38 by Daniel Blackman MD) Menorrhagia Pelvic pain Elevated LDL cholesterol level L4-L5 disc bulge Left hip pain Sciatica, left side Lumbar pain Chronic lower back pain Family History Father No problems noted. Mother No problems noted. Social History Housing: House Alcohol intake: current Alcohol intake frequency: holidays/special occasions only Patient Tobacco Use Status: Never used Tobacco service: No Current occupational status: unemployed Cognitive needs: No Hearing needs: No Vision needs: Yes (rx glasses) Questionnaire Thrive Questionnaire Date Thrive assessed: 04/11/25 I am a: Patient What is your living situation today?: I have a steady place to live Within the past 12 months, did the food you bought not last and you didn't have the money to get more?: Never true Within the past 12 months, did you worry whether your food would run out before you got money to buy more?: Never true Do you have trouble paying for medicines?: No Do you have trouble getting transportation to medical appointments?: No Do you have trouble paying your heating and electricity bill?: No Do you have trouble taking care of your child, family member or friend?: No Do you have trouble with day-to-day activities such as bathing, preparing meals, shopping, managing finances, etc.?: No Are you currently unemployed and looking for a job?: No Are you interested in more education?: No Please select the resources that you would like help with: None Currently or been in a relationship where the following occur: No concerns reported THRIVE Score: 0 AUDIT C Alcohol Use Questionnaire (AUDIT-C) 1. How often do you have a drink containing alcohol?: Monthly or less 2. How many drinks containing alcohol do you have on a typical day when you are drinking?: 1 or 2 3. How often do you have six or more drinks on one occasion?: Never Total Score: 1 SOL-7 AMB Questionnaire SOL-7 Date SOL - 7 assessed: 04/11/25 Source: Developed by Drs. Ar Bhardwaj, Yamilet Sewell, Georgi Hernández and colleagues, with an educational james from [employer]. Physical exam (Primary Care) Vital Signs: Last Vital Signs Temp 97.9 F 04/11/25 08:55 Pulse 67 04/11/25 08:55 Resp 16 04/11/25 08:55 BP 99/55 L 04/11/25 08:55 Pulse Ox 97 04/11/25 08:55 Oxygen Delivery Method Room Air 04/11/25 08:55 BMI result Body Mass Index 23.7 Tobacco/Smoking Status: Tobacco use Status Tobacco use date assessed 04/11/25 04/11/25 08:56 Patient Tobacco Use Status Never used Tobacco 04/11/25 08:53 Thrive Assessment: Date of Thrive Assessment Date Thrive assessed 04/11/25 04/11/25 08:56 Currently or been in a relationship where the following occur: No concerns reported Coding Level of Care Code Est Pt Level 4 (10270) Diagnoses Menorrhagia N92.0 Chronic sciatica M54.30 Mild intermittent asthma J45.20 Hyperlipidemia E78.5 Assessment & Plan Assessment & Plan (1) Menorrhagia: Code(s): N92.0 - Excessive and frequent menstruation with regular cycle Category: Medical (2) Chronic sciatica: Code(s): M54.30 - Sciatica, unspecified side (3) Mild intermittent asthma: Code(s): J45.20 - Mild intermittent asthma, uncomplicated (4) Hyperlipidemia: Code(s): E78.5 - Hyperlipidemia, unspecified Plan Orders: Orders US pelvic and transvaginal Today N92.0 - Excessive and frequent menstruation with regular cycle, R10.20 - Pelvic and perineal pain unspecified side Referrals Nurse Navigator Referral E78.00 - Pure hypercholesterolemia, unspecified
[2025-04-11 08:55] VITALS: BP 99/55; PULSE 67; RESP 16; TEMP 36.6; O2SAT 97; BMI 23.7
--- OUTSIDE RECORDS SUMMARY | 2025-04-11 08:56 | XMS_ITS | Clinical Summary ---
Author Organization [facility] Address [address] [place] [id number] Phone Care Team Providers Care Cash Person Name Role Phone Herminia Gallego NP Primary Care Provider [phone] Allergies Active Allergy Reactions Criticality Noted Date [...] 09/02/1996, 6,1995,05/04 Dtap, 5 Pertussis Antigens 03/02/2000 [id number] FORMULATION 04/22/2009 HPV,quadrivalent 03/27/2008,11/20/2007, 8 Hepatitis A, [...] Medical Devices Not on file Care Teams Cash Person Relationship Specialty Start Date End Date Herminia Gallego NP [address] [place] [address] PCP - General Family Medicine 01/17/21 Additional Source Comments The information contained in this document represents components of the legal health record. It is not the complete legal health record.[facility]
--- OUTSIDE RECORDS SUMMARY | 2025-04-11 08:56 | XMS_ITS | Encounter Summary ---
Author Organization [facility] Address [address] [place] [id number] Phone Care Team Providers Care Chamber Walker Name Role Phone Herminia Gallego NP Primary Care Provider [phone] Encounter Details Date Type Department Care Team (Late st Contact Info) Description 11/25/2022 Procedure Pass [place] Admitting Dept - Virtual Department [address] [place] [address] Social History Tobacco Use Types Packs/Day Years [...] documented as of this encounter Care Teams Chamber Walker Relationship Specialty Start Date End Date Herminia Gallego NP [address] [place] [address] PCP - General Family Medicine 01/17/21 documented as of this encounter Additional Source Comments The information contained in this document represents components of the legal health record. It is not the complete legal health record.[facility]
--- OUTSIDE RECORDS SUMMARY | 2025-04-11 08:56 | XMS_ITS | Encounter Summary ---
Author Organization [facility] Address [address] [place] [address] Phone Care Team Providers Care Pulp House Supervisor Name Role Phone JuliánHerminia NP Primary Care Provider Encounter Details Date Type Department Care Team (Late st Contact Info) Description 03/03/2021 Procedure Pass [facility], Ct Scan - [address] [address] Social History Tobacco Use Types Packs/Day Years [...] 5:08 PM EDT Gilda Ram RN * Bessie Suicide Severity Rating Scale (Screener/Recent Self-Report) Question [...] documented as of this encounter Care Teams Pulp House Supervisor Relationship Specialty Start Date End Date Herminia Gallego NP [address] [place] [address] PCP - General Family Medicine 01/17/21 documented as of this encounter Additional Source Comments The information contained in this document represents components of the legal health record. It is not the complete legal health record.[facility]
== END 2025-04-11 09:42 | disposition home or self-care (01) ==
LOC: HO.HMCFMS 08:33
PROVIDERS: PCP Student in an Organized Health Care Education/Training Program; Visit Provider Student in an Organized Health Care Education/Training Program
DX: N92.0 Excessive and frequent menstruation with regular cycle (principal); M54.30 Sciatica, unspecified side; J45.20 Mild intermittent asthma, uncomplicated; E78.5 Hyperlipidemia, unspecified

== ENCOUNTER → 2025-04-11 08:33 | Outpatient (BNVA) | payer OTHER, SELFPAY | PROVIDERS: PCP Student in an Organized Health Care Education/Training Program; Visit Provider Student in an Organized Health Care Education/Training Program | DX: N92.0 Excessive and frequent menstruation with regular cycle (principal); M54.30 Sciatica, unspecified side; J45.20 Mild intermittent asthma, uncomplicated; E78.5 Hyperlipidemia, unspecified | CPT/HCPCS: 99212 ==

== ENCOUNTER 2025-06-12 14:41 | Outpatient (AMB) | payer OTHER, SELFPAY ==
--- OUTSIDE RECORDS SUMMARY | 2022-08-02 11:32 | XMS_ITS | Encounter Summary ---
Author Organization [facility] Address [address] [place] [address] Phone Care Team Providers Care Instant Powder Supervisor Name Role Phone Herminia Gallego NP Primary Care Provider [phone] Encounter Details Date Type Department Care Team (Late st Contact Info) Description 08/02/2022 11:32 AM EST Hospital Encounter [facility] [address] [place] [address] Jonna Epstein FNP [address] [place] [address] [email or web address] Social History Tobacco Use Types Packs/Day Years Used Date Smoking Tobacco: Never Smokeless Tobacco: Never Alcohol Use Standard Drinks/Week Comments Never 0 (1 standard drink = 0.6 oz pur e alcohol) Education Answer Date Recorded Are you interested in more education? Not on hernando e 10/20/2022 Are you concerned about learning? Not on file 10/20/2022 No 10/20/2022 No 10/20/2022 Digital Access Answer Date Recorded No 11/21/2022 No 11/21/2022 Reliable internet access at home? Not on file 11/21/2022 Device with a working camera? Not on file Intimate Partner Violence Answer Date R ecorded Are you denied basic needs s uch as food, clothing, or medical care? No 09/19/2024 In the past 12 months have y ou been in a relationship with a person who hurts, threatens, or tries to control you? No 09/19/2024 Are you denied basic needs s uch as food, clothing, or medical care? No 09/19/2024 In the past 12 months have y ou been in a relationship with a person who hurts, threatens, or tries to control you? No 09/19/2024 Comments Unknown Sex and Gender Information Value Date Recorded Sex Assigned at Female 01/17/2021 5:54 PM EDT Legal Sex Female 7:31 PM EST Gender Identity Female 01/17/2021 5:54 PM EDT Sexual Orientation Not on file documented as of this encounter Functional Status * Calculated C-SSRS Risk Score (Lifetime/Recent) Answer Date of Assessment Author No Risk Indicated 09/19/2024 12:23 PM EDT Catherine Keith RN * [place] Suicide Severity Rating Scale (Screener/Recent Self-Report) Question Answer Date of Assessment Author 1. Wish to be (Past 1 Month) No 025 12:23 PM EDT Catherine Barahona RN 2. Non-Specific Active Suici enio Thoughts (Past 1 Month) No 09/19/2024 12:23 PM EDT Heena Barahona RN 6. Suicidal Behavior (Lifetime) No 12:23 PM EDT Catherine Barahona RN documented as of this encounter Plan of Treatment Not on file documented as of this encounter Procedures Procedure Name Priority Date/Time Associated Diagnosis Comments XR ANKLE 3 OR MORE VIEWS (RIGHT) Urgent/patient waiting 08/02/2022 11:44 AM EST Acute right ankle pain documented in this encounter Results * XR ANKLE 3 OR MORE VIEWS (RIGHT) (08/02/2022 11:44 AM EST) Anatomical Region Laterality Modality Ankle Right Computed Radiogr aphy 08/02/2022 12:0 0 PM EST Impressions 08/02/2022 12:03 PM EST No displaced fracture or dislocation. Narrative 08/02/2022 12:03 PM EST XR ANKLE 3 OR MORE VIEWS (RIGHT), XR TIBIA FIBULA 2 VIEWS (RIGHT) COMPARISON: None. FINDINGS: Right ankle: Transfixing screw along the medial malleolus. No displaced fracture. Preserved ankle mortise. No ankle effusion. Right tibia and fibula: No displaced fracture. Preserved knee cartilage spaces. No knee effusion. Procedure Note Jennyfer Campbell MD - 08/02/2022 XR ANKLE 3 OR MORE VIEWS (RIGHT), XR TIBIA FIBULA 2 VIEWS (RIGHT) COMPARISON: None. FINDINGS: Right ankle: Transfixing screw along the medial malleolus. No displacedfracture. Preserved ankle mortise. No ankle effusion. Right tibia and fibula: No displaced fracture. Preserved knee cartilagespaces. No knee effusion. IMPRESSION: No displaced fracture or dislocation. Jonna Epstein MICROSOFT DYNAMICS CONSULTANT IMG XR LOWER EXTREMITY Joan l Result documented in this encounter Visit Diagnoses Not on filedocumented in this encounter Additional Health Concerns Infection Onset Date Last Indicated Resolved Time CoV-Risk 07/01/2024 07/01/2024 07/12/2024 1:23 AM EST documented as of this encounter Care Teams Instant Powder Supervisor Relationship Specialty Start Date End Date Herminia Gallego NP [address] [place] [address] PCP - General Family Medicine 01/17/21 documented as of this encounter Additional Source Comments The information contained in this document represents components of the legal health record. It is not the complete legal health record.[facility]
--- OUTSIDE RECORDS SUMMARY | 2022-08-02 11:40 | XMS_ITS | Encounter Summary ---
Author Organization [facility] Address [address] [place] [address] Phone Care Team Providers Care Forestry Technical Officer Name Role Phone Herminia Gallego NP Primary Care Provider [phone] Encounter Details Date Type Department Care Team (Late st Contact Info) Description 08/02/2022 11:40 AM EST Hospital Encounter [facility] [address] [place] [address] Jonna Epstein FNP [address] [place] [address] [email or web address] Social History Tobacco Use Types Packs/Day Years [...] 12:23 PM EDT Catherine Keith RN * [place] Suicide Severity Rating Scale (Screener/Recent Self-Report) Question [...] Name Priority Date/Time Associated Diagnosis Comments XR TIBIA FIBULA 2 VIEWS (RIGHT) Urgent/patient waiting 08/02/2022 11:45 AM EST Acute right ankle pain documented in this encounter Results * XR Tibia Fibula 2 Views (Right) (08/02/2022 11:45 AM EST) Anatomical Region Laterality Modality Leg Right Computed Radiogr aphy 08/02/2022 12:0 0 [...] No displaced fracture or dislocation. Jonna Epstein COMPOUNDING AND FINISHING SUPERVISOR IMG XR LOWER EXTREMITY Joan l Result documented in this encounter Visit Diagnoses Not on filedocumented in this encounter Additional Health Concerns Infection Onset Date Last Indicated Resolved Time CoV-Risk 07/01/2024 07/01/2024 07/12/2024 1:23 AM EST documented as of this encounter Care Teams Forestry Technical Officer Relationship Specialty Start Date End Date Herminia Gallego NP [address] [place] [address] PCP - General Family Medicine 01/17/21 documented as of this encounter Additional Source Comments The information contained in this document represents components of the legal health record. It is not the complete legal health record.[facility]
--- OUTSIDE RECORDS SUMMARY | 2024-07-01 17:05 | XMS_ITS | Encounter Summary ---
Author Organization [facility] Address [address] [place] [address] Phone Care Team Providers Care Seam Press Operator Name Role Phone Herminia Gallego NP Primary Care Provider [phone] Encounter Details Date Type Department Care Team (Late st Contact Info) Description 07/01/2024 5:05 PM EST Hospital Encounter [facility] [address] [place] [address] Jonna Epstein FNP [address] [place] [address] [email or web address] Social History Tobacco Use Types Packs/Day [...] 12:23 PM EDT Catherine Keith RN * [place] Suicide Severity Rating Scale (Screener/Recent Self-Report) Question [...] Name Priority Date/Time Associated Diagnosis Comments XR CHEST PA AND LATERAL 2 VIEWS Urgent/patient waiting 07/01/2024 5:12 PM EST Viral upper respiratory tract infection with cough documented in this encounter Results * XR CHEST PA AND LATERAL 2 VIEWS (07/01/2024 5:12 PM EST) Anatomical Region Laterality Modality Chest Computed Radiogr aphy 07/01/2024 5:18 PM EST Impressions 07/01/2024 5:19 PM EST Normal chest. Narrative 07/01/2024 5:19 PM EST XR CHEST PA AND LATERAL 2 VIEWS Referring clinician's provided indication for this examination in Epic: Cough; chest heaviness sob COMPARISON: XR CHEST PA AND LATERAL 2 VIEWS FINDINGS: Devices/Tubes/Lines: None. Lungs: Normal. The lungs are clear. No focal consolidation or pulmonary edema. Pleura: Normal. No pleural effusion or pneumothorax. Heart/Mediastinum: Normal heart and mediastinum. Bones/Soft Tissues: Normal. No significant skeletal abnormality. Procedure Note Anurag Mcgee MD, MPH - 07/01/2024 XR CHEST PA AND LATERAL 2 VIEWS Referring clinician's provided indication for this examination in [facility]:Cough; chest heaviness sob COMPARISON: XR CHEST PA AND LATERAL 2 VIEWS FINDINGS: Devices/Tubes/Lines: None. Lungs: Normal. The lungs are clear. No focal consolidation or pulmonaryedema. Pleura: Normal. No pleural effusion or pneumothorax. Heart/Mediastinum: Normal heart and mediastinum. Bones/Soft Tissues: Normal. No significant skeletal abnormality. IMPRESSION: Normal chest. Jonna Epstein SET UP MECHANIC IMG XR CHEST Final Resul t documented in this encounter Visit Diagnoses Not on filedocumented in this encounter Additional Health Concerns Infection Onset Date Last Indicated Resolved Time CoV-Risk 07/01/2024 07/01/2024 07/12/2024 1:23 AM EST documented as of this encounter Care Teams Seam Press Operator Relationship Specialty Start Date End Date Herminia Gallego NP [address] [place] [address] PCP - General Family Medicine 01/17/21 documented as of this encounter Additional Source Comments The information contained in this document represents components of the legal health record. It is not the complete legal health record.[facility]
--- NOTE | 2025-06-12 14:48 | MHC.PC.OV ---
Vital Signs 06/12/25 15:20 Height 5 ft 2.2 in Weight 133 lb 6 oz BMI 24.2 BP 125/57 L Blood Pressure Location Rt brachial Position Sitting Respiration 18 Pulse 72 Pulse Source Pulse Oximeter Temp 98 F Temp Source Oral Pulse Oximetry (%) 99 Oxygen Delivery Method Room Air Intake Visit Reasons: f/u back pain Intake Note: Patient present for follow up back pain that has been getting worse. Left low back pain radiating to left leg. Accompanied by: Self / Same As Patient Allergies buspirone Allergy (Mild, Verified 06/12/25 15:18) Hives Medication List - Last Reconciled 06/14/25 by Daniel Blackman MD albuterol-budesonide 90-80 mcg/actuation 4 inhalations inhalation DAILY PRN ibuprofen 800 mg PO Q8H Tobacco use date assessed: 04/11/25 Dental Screening Dental Screen Date: 03/28/25 HPI HPI Comments History of Present Illness Details History of Present Illness The patient is a 30 year old female presenting with management of chronic back pain and evaluation of acute upper respiratory symptoms. Chronic Low Back Pain: The patient reports a long history of back problems since high school, characterized by a cycle of improvement followed by re-injury. For the past two years, she has experienced exacerbations every three months that require an ER visit for what feels like a slipped disc. Her physically demanding job, which involves lifting over 1200 pounds during a shift, contributes to the strain on her back. Past evaluations have been ongoing since she was [age] years old, with an early focus on anteriorly displaced hips. About 6-8 years ago, she sustained a stage three concussion which exacerbated her spinal issues. She has previously seen sports and regular orthopedists and had her spine evaluated in [place]. A prior CT scan showed spinal stenosis and a bulging disc at L4-L5. Interventions have included intermittent physical therapy, and she has refused a proposed spinal fusion surgery ( cage ). Acute Upper Respiratory Infection: The patient reports feeling unwell for one day, with symptoms including nasal congestion with significant post-nasal drainage and a slight cough. She denies any chest symptoms or exacerbation of her asthma. She is concerned about potentially transmitting the illness to her grandparents during an upcoming [place] visit. Surgical History: - No prior surgeries reported; the patient has previously refused a proposed spinal fusion. Medications: - The patient reports she is not a pills and medications person and is not taking any current medications. 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 - Health Beliefs: She expresses an aversion to taking pills and medications for her conditions. Family History: - Reports a family history of fibroids. Diagnostic Results: - Prior Imaging: A past CT scan revealed spinal stenosis and a bulging disc at L4-L5. Past Medical History - Chronic low back pain since high school. - Lumbar spinal stenosis, diagnosed on prior CT scan. - L4-L5 disc bulge, diagnosed on prior CT scan. - Left-sided sciatica. - History of stage 3 concussion approximately 6-8 years ago. - History of anteriorly displaced hips. - History of asthma. Health Maintenance - The patient has an upcoming ultrasound scheduled to screen for uterine fibroids due to a positive family history. FORMERLY [facility], [facility] Medical History (Updated 06/14/25 @ 14:50 by Daniel Blackman MD) Spinal stenosis at L4-L5 level Menorrhagia Pelvic pain Elevated LDL cholesterol level L4-L5 disc bulge Left hip pain Sciatica, left side Lumbar pain Chronic lower back pain Family History Father No problems noted. Mother No problems noted. Social History (Updated 06/12/25 @ 15:19 by [facility]) Housing: House Alcohol intake: current Alcohol intake frequency: holidays/special occasions only Patient Tobacco Use Status: Never used Tobacco e-Cigarette/Vaping Use: Never Used Substance Use Type: Marijuana service: No Current occupational status: unemployed Cognitive needs: No Hearing needs: No Vision needs: Yes (rx glasses) Questionnaire PHQ-9 Over the last 2 weeks, how often have you been bothered by any of the following problems? 1. Little interest or pleasure in doing things: several days 2. Feeling down, depressed, or hopeless: several days 3. Trouble falling or staying asleep, or sleeping too much: several days 4. Feeling tired or having little energy: not at all 5. Poor appetite or overeating: not at all 6. Feeling bad about yourself - or that you are a failure or have let yourself or your family down: not at all 7. Trouble concentrating on things, such as reading the newspaper or watching television: not at all 8. Moving or speaking so slowly that other people could have noticed. Or the opposite - being so fidgety or restless that you have been moving around a lot more than usual: not at all 9. Thoughts that you would be better off or of hurting yourself in some way: not at all Total score: 3 Depression Screening Interpretation: Negative Depression Screening Done: Yes 82460 - PHQ-9 Billing: Yes Source: Developed by Drs. Ar Bhardwaj, Yamilet Sewell, Georgi Hernández and colleagues, with an educational james from [employer]. Thrive Questionnaire Date Thrive assessed: 03/21/25 I am a: Patient What is your living situation today?: I have a steady place to live Within the past 12 months, did the food you bought not last and you didn't have the money to get more?: Never true Within the past 12 months, did you worry whether your food would run out before you got money to buy more?: Never true Do you have trouble paying for medicines?: No Do you have trouble getting transportation to medical appointments?: No Do you have trouble paying your heating and electricity bill?: No Do you have trouble taking care of your child, family member or friend?: No Do you have trouble with day-to-day activities such as bathing, preparing meals, shopping, managing finances, etc.?: No Are you currently unemployed and looking for a job?: No Are you interested in more education?: No Currently or been in a relationship where the following occur: No concerns reported THRIVE Score: 0 AUDIT C Alcohol Use Questionnaire (AUDIT-C) 1. How often do you have a drink containing alcohol?: Monthly or less 2. How many drinks containing alcohol do you have on a typical day when you are drinking?: 1 or 2 3. How often do you have six or more drinks on one occasion?: Never Total Score: 1 OSL-7 AMB Questionnaire SOL-7 Date SOL - 7 assessed: 04/11/25 Source: Developed by Drs. Ar Bhardwaj, Yamilet Sewell, Georgi Hernández and colleagues, with an educational james from [employer]. Review of Systems Narrative Review of Systems - Musculoskeletal: Reports chronic low back pain with frequent re-injury and left-sided sciatica. - Respiratory: Reports a slight cough. Denies any chest symptoms or issues related to her asthma. - ENT: Reports nasal stuffiness and post-nasal drip. - Constitutional: Reports feeling under the weather. 10-point ROS reviewed and negative except as noted in HPI Physical exam (Primary Care) Vital Signs: Last Vital Signs Temp 98 F 06/12/25 15:20 Pulse 72 06/12/25 15:20 Resp 18 06/12/25 15:20 BP 125/57 L 06/12/25 15:20 Pulse Ox 99 06/12/25 15:20 Oxygen Delivery Method Room Air 06/12/25 15:20 BMI result Body Mass Index 24.2 Tobacco/Smoking Status: Tobacco use Status Tobacco use date assessed 04/11/25 06/12/25 14:49 Patient Tobacco Use Status Never used Tobacco 06/12/25 15:19 e-Cigarette/Vaping Use Never Used 06/12/25 15:21 PHQ-9: PHQ-9 Score PHQ-9: Total score 3 06/13/25 07:16 Depression Screening Interpretation: Negative Thrive Assessment: Date of Thrive Assessment Date Thrive assessed 03/21/25 06/12/25 14:49 Currently or been in a relationship where the following occur: No concerns reported Narrative Physical Exam General: Well-appearing, in no acute distress. Vital signs: Within normal limits. HEENT: Normocephalic, atraumatic. PERRLA, EOMI. Conjunctiva clear, sclera anicteric. Oropharynx clear, mucous membranes moist. TMs intact bilaterally. Neck: Supple, no lymphadenopathy, no thyromegaly, no JVD or carotid bruits. Cardiovascular: RRR, normal S1/S2, no murmurs, rubs, or gallops. Peripheral pulses 2+ and symmetric. No edema. Respiratory: Lungs clear to auscultation bilaterally, no wheezes, rales, or rhonchi. Normal effort. Abdomen: Soft, non-tender, non-distended. Normoactive bowel sounds. No hepatosplenomegaly, no masses. MSK: Full range of motion, no joint swelling or deformity. Normal gait. Skin: Warm, dry, intact. No rashes, lesions, or pallor. Neuro: Alert and oriented x3. Cranial nerves II-XII intact. Strength 5/5 throughout. Sensation intact. Reflexes 2+ symmetric. Normal coordination and gait. Psych: Appropriate mood and affect. Normal judgment and insight. Coding Level of Care Code Est Pt Level 3 (62012) Add On Problem Visit Only Diagnoses L4-L5 disc bulge M51.369 Spinal stenosis at L4-L5 level M48.061 Sciatica, left side M54.32 Chronic lower back pain M54.50; G89.29 Lumbar pain M54.50 Upper respiratory symptom R09.89 Additional Codes PHQ-9 - 46942 - PHQ-9 Billing: Yes ([id number]) Assessment & Plan Assessment & Plan (1) L4-L5 disc bulge: Code(s): M51.369 - Other intervertebral disc degeneration, lumbar region without mention of lumbar back pain or lower extremity pain Category: Medical (2) Spinal stenosis at L4-L5 level: Code(s): M48.061 - Spinal stenosis, lumbar region without neurogenic claudication Category: Medical (3) Sciatica, left side: Code(s): M54.32 - Sciatica, left side Category: Medical (4) Chronic lower back pain: Code(s): M54.50 - Low back pain, unspecified; G89.29 - Other chronic pain Category: Medical (5) Lumbar pain: Code(s): M54.50 - Low back pain, unspecified Category: Medical (6) Upper respiratory symptom: Code(s): R09.89 - Other specified symptoms and signs involving the circulatory and respiratory systems Category: Medical Plan Consent Patient was informed and verbally consented to the use of an ambient scribe for clinic note documentation during this visit. Plan 1. Chronic Low Back Pain With Left Sciatica - Plan to order an MRI of the lumbar spine to obtain updated imaging, as the patient has sustained re-injuries since her last scans. - Refer to Pain Management for evaluation, with the understanding that the goal is to explore non-pharmacological options such as radioablation. - Refer to Physical Medicine & Rehabilitation (PM&R) for a comprehensive evaluation by a head of drama. - Defer referral to Neurosurgery until after the MRI is completed, as they will require the imaging for consultation. 2. Acute Upper Respiratory Infection - Collect a swab for a respiratory panel to test for COVID-19, influenza, and RSV. - Instructed the patient to wear a mask when visiting her grandparents to prevent potential transmission of illness. Discussion Notes I discussed with the patient the chronic and debilitating nature of her back pain and its significant impact on her quality of life. We reviewed her history of recurrent injuries, prior diagnoses of spinal stenosis and disc bulge on CT, and her explicit refusal of spinal fusion surgery in the past. I explained that a comprehensive, multi-specialty approach would be most beneficial. I outlined the plan to order a new MRI, which is a necessary step before a neurosurgery consultation, and to place referrals to both Physical Medicine & Rehabilitation (PM&R) and Pain Management. I assured her that the Pain Management referral is intended to explore modalities other than oral medications, in line with her preferences. We also addressed her acute upper respiratory symptoms and her concern about infecting her grandparents. I arranged for a COVID/flu/RSV swab and provided anticipatory guidance on wearing a mask to prevent transmission. The patient understood and was agreeable to the proposed plan. Patient Instructions - We will be getting a new MRI of your back to see what is currently going on. - I am sending referrals for you to be seen by a doctor in Physical Medicine & Rehab (PM&R) and a doctor in Pain Management. - When you see the pain specialist, let them know you want to talk about options that do not involve taking pills. - You will be tested today for COVID-19, the flu, and RSV because you are feeling sick. - Please wear a mask when you visit your grandparents to keep from getting them sick. Medical Decision Making The patient is a 30-year-old female with a long, debilitating history of chronic low back pain since adolescence, which significantly impacts her quality of life and her physically demanding occupation. Her clinical history is notable for recurrent [id number]-le-[id number] exacerbations requiring ER visits, a known structural basis on prior CT (spinal stenosis, L4-L5 disc bulge), and a stated aversion to major surgery (spinal fusion) and oral medications. Given the failure of intermittent physical therapy to provide lasting relief, a multi-modal, comprehensive approach is warranted. An updated lumbar spine MRI is clinically necessary to assess for any interval changes given her history of re-injury and will be a prerequisite for any neurosurgical consultation. Referrals to PM&R and Pain Management are appropriate to explore a broader range of conservative and procedural options, such as targeted injections or radioablation, which may improve her functional status and align with her treatment preferences. The separate issue of acute URI symptoms warrants testing for COVID-19, influenza, and RSV to provide diagnostic clarity and guide appropriate infection control measures, especially due to her planned contact with elderly relatives. Total Time Statement 20 min Total time spent caring for the patient today includes pre-visit chart review, documentation, review of laboratory and diagnostic imaging results, medication reconciliation, medically necessary evaluation, counseling on diagnoses, care coordination, ordering appropriate tests and medications, review of tests performed by other providers, reporting test results to the patient, and communication with other healthcare providers. Orders: Orders SARS-CoV2/FLU/RSV 06/12/25 R09.89 - Other specified symptoms and signs involving the circulatory and respiratory systems MR lumbar spine wo con 06/12/25 G89.29 - Other chronic pain, M48.061 - Spinal stenosis, lumbar region without neurogenic claudication, M51.369 - Other intervertebral disc degeneration, lumbar region without mention of lumbar back pain or lower extremity pain, M54.32 - Sciatica, left side, M54.50 - Low back pain, unspecified Referrals Pain Management Referral G89.29 - Other chronic pain, M48.061 - Spinal stenosis, lumbar region without neurogenic claudication, M51.369 - Other intervertebral disc degeneration, lumbar region without mention of lumbar back pain or lower extremity pain, M54.32 - Sciatica, left side, M54.50 - Low back pain, unspecified Physical Medicine and Rehabilitation Referral G89.29 - Other chronic pain, M48.061 - Spinal stenosis, lumbar region without neurogenic claudication, M51.369 - Other intervertebral disc degeneration, lumbar region without mention of lumbar back pain or lower extremity pain, M54.32 - Sciatica, left side, M54.50 - Low back pain, unspecified
[2025-06-12 15:20] VITALS: BP 125/57; PULSE 72; RESP 18; TEMP 36.6; O2SAT 99; BMI 24.2
--- OUTSIDE RECORDS SUMMARY | 2025-06-12 18:50 | XMS_ITS | Clinical Summary ---
Author Organization [facility] Address [address] [place] [id number] Phone Care Team Providers Care Emulsion Operator Name Role Phone Herminia Gallego NP Primary Care Provider [phone] Allergies Active Allergy Reactions Criticality Noted Date [...] 09/02/1996, 6,1995,05/04 Dtap, 5 Pertussis Antigens 03/02/2000 [id number] FORMULATION 04/22/2009 HPV,quadrivalent 03/27/2008,11/20/2007, 8 Hepatitis A, [...] 2:17 PM EDT Oxygen Saturation 98% 09/19/2024 2:17 PM EDT Inhaled Oxygen Concentration - - [...] Medical Devices Not on file Care Teams Emulsion Operator Relationship Specialty Start Date End Date Herminia Gallego NP [address] [place] [address] PCP - General Family Medicine 01/17/21 Additional Source Comments The information contained in this document represents components of the legal health record. It is not the complete legal health record.[facility]
--- OUTSIDE RECORDS SUMMARY | 2025-06-12 18:50 | XMS_ITS | Encounter Summary ---
Author Organization [facility] Address [address] [place] [address] Phone Care Team Providers Care Veneer Manufacturer Name Role Phone Herminia Gallego NP Primary Care Provider [phone] Encounter Details Date Type Department Care Team (Late st Contact Info) Description 11/25/2022 Procedure Pass [place] Admitting Dept - Virtual Department [address] [place] [address] Social History Tobacco Use Types Packs/Day Years [...] documented as of this encounter Care Teams Veneer Manufacturer Relationship Specialty Start Date End Date Herminia Gallego NP [address] [place] [address] PCP - General Family Medicine 01/17/21 documented as of this encounter Additional Source Comments The information contained in this document represents components of the legal health record. It is not the complete legal health record.[facility]
--- OUTSIDE RECORDS SUMMARY | 2025-06-12 18:50 | XMS_ITS | Encounter Summary ---
Author Organization [facility] Address [address] [place] [address] Phone Care Team Providers Care Insurance Claims Supervisor Name Role Phone JuliánHerminia NP Primary Care Provider [phone] Encounter Details Date Type Department Care Team (Late st Contact Info) Description 03/03/2021 Procedure Pass [facility], Ct Scan - [address] [address] Social History Tobacco Use Types Packs/Day Years [...] 5:08 PM EDT Gilda Ram RN * [place] Suicide Severity Rating Scale (Screener/Recent Self-Report) Question [...] documented as of this encounter Care Teams Insurance Claims Supervisor Relationship Specialty Start Date End Date Herminia Gallego NP [address] [place] [address] PCP - General Family Medicine 01/17/21 documented as of this encounter Additional Source Comments The information contained in this document represents components of the legal health record. It is not the complete legal health record.[facility]
== END 2025-06-12 16:11 | disposition home or self-care (01) ==
LOC: HO.HMCFMS 14:42
PROVIDERS: PCP Student in an Organized Health Care Education/Training Program; Visit Provider Student in an Organized Health Care Education/Training Program
DX: M51.369 Other intervertebral disc degeneration, lumbar region without mention of lumbar back pain or lower extremity pain (principal); M48.061 Spinal stenosis, lumbar region without neurogenic claudication; M54.32 Sciatica, left side; M54.50 Low back pain, unspecified; G89.29 Other chronic pain; R09.89 Other specified symptoms and signs involving the circulatory and respiratory systems

== ENCOUNTER 2025-06-12 14:41 | Outpatient (REF) | payer OTHER, SELFPAY ==
[2025-06-12 19:13] LABS: Resp Syncy Virus RNA Qual PCR NEGATIVE (Negative); SARS COV2 PCR INHOUSE NEGATIVE (Negative)
== END 2025-06-12 14:42 | disposition home or self-care (01) ==
LOC: HO.LAB 14:41
PROVIDERS: PCP Student in an Organized Health Care Education/Training Program; Visit Provider Student in an Organized Health Care Education/Training Program
DX: R09.89 Other specified symptoms and signs involving the circulatory and respiratory systems (principal); M51.369 Other intervertebral disc degeneration, lumbar region without mention of lumbar back pain or lower extremity pain; M48.061 Spinal stenosis, lumbar region without neurogenic claudication; M54.32 Sciatica, left side; M54.50 Low back pain, unspecified; G89.29 Other chronic pain
CPT/HCPCS: 87637; 96127; 99212